=== PATIENT | male | born 1960 | race Caucasian/White ===

== ENCOUNTER 2017-12-08 22:22 | Emergency (ER) | payer BC ==
[2017-12-08 22:37] LABS: BILIRUBIN,URINE NEGATIVE (NEGATIVE); GLUCOSE, URINE (UA) NEGATIVE (NEGATIVE); KETONES,URINE (UA) NEGATIVE (NEGATIVE); LEUKOCYTE ESTERASE, URINE NEGATIVE (NEGATIVE); NITRITE,URINE NEGATIVE (NEGATIVE); OCCULT BLOOD,URINE LARGE (NEGATIVE); PROTEIN,URINE 30 mg/dL (NEGATIVE); UROBILINOGEN,URINE 0.2 (NORMAL) E.U./dL (NORMAL)
[2017-12-08 22:38] LABS: CLARITY,URINE CLEAR (CLEAR)
--- NOTE | 2017-12-08 22:40 | ED Physician Documentation ---
PD HPI MALE - Stated complaint Stated Complaint: MALE - Chief complaint Chief Complaint: Abd Pain - History obtained from History obtained from: Patient - History of Present Illness Timing - details: Abrupt onset Pain level max: 10 Pain level now: 8 Associated symptoms: Hematuria Similar symptoms before: Diagnosis (renal colic) Recently seen: Not recently seen - Additional information Additional information: hematuria started few days ago without discomfort, subsequently developed increasingly intense and frequent right flank pain. tonight, suddenly developed severe right flank pain Review of Systems Constitutional: reports: Reviewed and negative Cardiac: reports: Reviewed and negative Respiratory: reports: Reviewed and negative GI: reports: Abdominal Pain (right flank), Nausea. denies: Vomiting, Constipation, Diarrhea : reports: Hematuria. denies: Dysuria, Frequency PD PAST MEDICAL HISTORY - Past Medical History Past Medical History: Yes : Kidney stones - Past Surgical History Past Surgical History: No - Present Medications Home Medications: Ambulatory Orders Medication Instructions Recorded Confirmed Ondansetron Odt [Zofran] 4 mg TL Q6H PRN #10 tablet 12/09/17 Tamsulosin [Flomax] 0.4 mg PO DAILY #14 capsule 12/09/17 oxyCODONE/ACET 5/325 [Percocet 5 1 - 2 each PO Q6H PRN #20 tablet 12/09/17 mg/325 mg] - Allergies Allergies/Adverse Reactions: Allergies Allergy/AdvReac Type Severity Reaction Status Date / Time No Known Drug Allergies Allergy Verified 12/08/17 22:33 PD ED PE NORMAL - Vitals Vital signs reviewed: Yes - General General: Alert and oriented X 3, Well developed/nourished, Other (waxing and waning painful distress) - HEENT HEENT: Moist mucous membranes - Cardiac Cardiac: RRR, No murmur - Respiratory Respiratory: No respiratory distress, Clear bilaterally - Abdomen Abdomen: Normal bowel sounds, Soft, Non tender, Non distended - Back Back: No CVA TTP - Derm Derm: No rash Results - Vitals Vitals: Vital Signs - 24 hr 12/09/17 12/09/17 12/09/17 00:07 00:19 00:47 Heart Rate 75 70 65 Respiratory 18 18 18 Rate Blood Pressure 115/75 140/97 H O2 Saturation 97 12/09/17 12/09/17 12/09/17 01:57 02:19 02:38 Heart Rate 80 82 Respiratory 18 17 17 Rate Blood Pressure 138/88 H 138/99 H O2 Saturation 98 96 Oxygen O2 Source Room air - Labs Labs: Laboratory Tests 12/08/17 22:30 Urine Color YELLOW Urine Clarity CLEAR Urine pH 5.0 Ur Specific [place] >=1.030 H Urine Protein 30 H Urine Glucose (UA) NEGATIVE Urine Ketones NEGATIVE Urine Occult Blood LARGE H Urine Nitrite NEGATIVE Urine Bilirubin NEGATIVE Urine Urobilinogen 0.2 (NORMAL) Ur Leukocyte Esterase NEGATIVE Urine RBC TNTC H Urine WBC 4-5 Ur Squamous Epith Cells RARE Squamous Urine Crystals 6-10 Calcium Oxalate Urine Bacteria Rare Ur Microscopic Review INDICATED Urine Culture Comments NOT INDICATED - Rads (name of study) CT A/P Radiology: Prelim report reviewed, See rad report PD MEDICAL DECISION MAKING - ED course Complexity details: reviewed results, re-evaluated patient, considered differential, d/w patient ED course: D/W Dr. Rodríguez (urology at [facility]), no recommendations at this time. Departure - Departure Disposition: Home, Self Care Clinical Impression: Renal colic Condition: Good Instructions: ED Stone Renal W Colic Follow-Up: Baljinder Carmen MD [Primary Care Provider] - Prescriptions: Ondansetron Odt [Zofran] 4 mg TL Q6H PRN #10 tablet PRN Reason: Nausea / Vomiting oxyCODONE/ACET 5/325 [Percocet 5 mg/325 mg] 1 - 2 each PO Q6H PRN #20 tablet PRN Reason: Pain Tamsulosin [Flomax] 0.4 mg PO DAILY #14 capsule Comments: You need to follow up with a urologist. You can contact your insurance provider or your primary care physician's office for a referral. Based on the size of your kidney stone, it is highly likely that you will need a procedure to have the stone removed. Discharge Date/Time: 12/09/17 02:25
[2017-12-08 22:44] LABS: BACTERIA,URINE Rare /HPF (None Seen); RBC,URINE TNTC /HPF (0-5); SQUAMOUS EPITHELIAL CELL,UR RARE Squamous (<= Few)
[2017-12-08 22:45] LABS: CRYSTALS,URINE 6-10 Calcium Oxalate /LPF
[2017-12-08] MEDS ORDERED: ONDANSETRON 4 MG/2 ML VIAL IVP STA (22:52)
[2017-12-08] MEDS ORDERED: KETOROLAC 60 MG/2 ML VIAL IVP STA (22:52)
[2017-12-08] MEDS ORDERED: fentaNYL 100 MCG/2 ML VIAL IVP STA ×2 (22:52→23:58)
--- NOTE | 2017-12-09 00:05 | CT Preliminary Report ---
Exam: CT ABDOMEN/PELVIS W/O IMPRESSION: 1. Moderate right-sided hydronephrosis due to a right UPJ/proximal ureteral stone measuring 11.8 x 10 .4 x 10.3 mm, 1346 Hounsfield units in density. 2. Incipient right mid kidney stone. No intrarenal left sided stone noted. No left hydronephrosis wit h 3. Appendix is normal. There is no bowel obstruction. 4. Prior granulomatous disease with numerous calcified splenic and hepatic granulomata. Calcified rig ht hilar lymph node as well as right middle lobe granulomata. [facility] SITE ID: [id number]
[2017-12-09] MEDS ORDERED: ONDANSETRON 4 MG/2 ML VIAL IVP STA (00:09)
--- NOTE | 2017-12-09 00:11 | CT Report ---
EXAM: CT ABDOMEN AND PELVIS WITHOUT CONTRAST EXAM DATE: 12/08/2017 11:41 PM. CLINICAL HISTORY: Right-sided flank pain, increased urination for 2 days. COMPARISONS: None. TECHNIQUE: Routine helical CT imaging was performed through the abdomen and pelvis. IV contrast: None . Enteric contrast: No. Reconstructions: Coronal and sagittal. In accordance with CT protocol optimization, one or more of the following dose reduction techniques w ere utilized for this exam: automated exposure control, adjustment of mA and/or KV based on patient s ize, or use of iterative reconstructive technique. FINDINGS: Right Kidney/Ureter: Moderate right-sided hydronephrosis due to an obstructing right UPJ/proximal ure teral stone measuring 11.8 x 10.4 x 10.3 mm (image 78 series 3). This stone measures 1346 Hounsfield units in density. Incipient right mid kidney stone is noted anteriorly (image 62 series 3). There is no definite suspicious renal mass within the confines of a noncontrast exam. Left Kidney/Ureter: No stones. No hydronephrosis or hydroureter. No definite renal mass within the co nfines of a non-contrast exam. Abdominal Solid Organs: Numerous calcified splenic granulomata and a few calcified hepatic granulomat a. Otherwise abdominal parenchymal organs are without significant abnormality within the confines of a noncontrast exam. Bowel: No evidence of bowel obstruction. Appendix: Normal. Lymph Nodes: No definite pathologic lymphadenopathy. Fluid: No significant ascites. Vasculature: Normal caliber aorta. There is mild aortic and branch vessel atherosclerosis. Pelvis: No bladder stones. Decompressed bladder, precluding assessment. There is a small fat-containi ng left inguinal hernia noted. Bones: No definite suspicious bony lesions demonstrated. Moderate lower lumbar degenerative change. Lower Chest: No significant lung base consolidation or effusion. Calcified right middle lobe granulom yenny. IMPRESSION: 1. Moderate right-sided hydronephrosis due to a right UPJ/proximal ureteral stone measuring 11.8 x 10 .4 x 10.3 mm, 1346 Hounsfield units in density. 2. Incipient right mid kidney stone. No intrarenal left-sided stone noted. No left hydronephrosis. 3. Appendix is normal. There is no bowel obstruction. 4. Prior granulomatous disease with numerous calcified splenic and hepatic granulomata. Calcified rig ht hilar lymph node as well as right middle lobe granulomata. [facility] Referring Provider Line: [phone] SITE ID: [id number]
[2017-12-09] MEDS ORDERED: TAMSULOSIN 0.4 MG CAPSULE PO STA (01:45)
[2017-12-09] MEDS ORDERED: oxyCOD/ACETAMIN 5 MG/325 MG TABLET PO STA (01:45)
[2017-12-09] MEDS ORDERED: HYDROmorphone 2 MG/ML VIAL IVP STA (01:45)
[2017-12-09] MEDS ORDERED: oxyCODONE/ACET 5/325 Prepack 4 PO STA (02:18)
[2017-12-09 02:20] VITALS: BP 138/99
== END 2017-12-09 02:25 | disposition home or self-care (01) ==
LOC: ED 22:22
DX: N13.2 Hydronephrosis with renal and ureteral calculous obstruction (principal)
CPT/HCPCS: 74176; 81001; 96374; 96375; 96376; 99284; A9270; J1170; 81003; 87086

== ENCOUNTER 2020-01-15 09:59 | Emergency (ER) | payer BC ==
[2020-01-15 10:11] VITALS: BP 133/84
--- NOTE | 2020-01-15 10:42 | ED Physician Documentation ---
PD HPI UPPER EXT INJURY - Stated complaint Stated Complaint: LT HAND LAC - Chief complaint Chief Complaint: Laceration - History obtained from History obtained from: Patient - History of Present Illness Location: Left, Finger Type of injury: Laceration (Using a hedge tremor in his left finger tip got caught with the hedge tremors he reached for something. Small laceration that still bleeds despite direct pressure) Where injury occurred: Home Timing - onset: Today Timing - details: Abrupt onset, Still present Associated symptoms: No: Weakness, Numbness Contributing factors: No: Anticoagulated Similar symptoms before: Has not had sx before Review of Systems Constitutional: denies: Fever, Chills Nose: denies: Rhinorrhea / runny nose, Congestion Throat: denies: Sore throat Respiratory: denies: Cough Neurologic: denies: Focal weakness, Numbness PD PAST MEDICAL HISTORY - Past Medical History Past Medical History: Yes Neuro: None Endocrine/Autoimmune: None : Kidney stones HEENT: None Derm: None - Past Surgical History Past Surgical History: No - Present Medications Home Medications: Ambulatory Orders Medication Instructions Recorded Confirmed Ondansetron Odt [Zofran] 4 mg TL Q6H PRN #10 tablet 12/09/17 Tamsulosin [Flomax] 0.4 mg PO DAILY #14 capsule 12/09/17 oxyCODONE/ACET 5/325 [Percocet 5 1 - 2 each PO Q6H PRN #20 tablet 12/09/17 mg/325 mg] - Allergies Allergies/Adverse Reactions: Allergies Allergy/AdvReac Type Severity Reaction Status Date / Time No Known Drug Allergies Allergy Verified 01/15/20 10:03 - Social History Does the pt smoke?: No Smoking Status: Never smoker Does the pt drink ETOH?: No Does the pt have substance abuse?: No - Immunizations Immunizations are current?: Yes - POLST Patient has POLST: No PD ED PE NORMAL - Vitals Vital signs reviewed: Yes - General General: Alert and oriented X 3, No acute distress, Well developed/nourished - Derm Derm: Normal color, Warm and dry - Extremities Extremities: Other (Left index finger tip shows a 1 cm laceration still with some bleeding but no foreign body. It is just at the very tip of the nailbed and does cause a small cleft in the end of the nail. He has sensation in the area.) - Neuro Neuro: Alert and oriented X 3, No motor deficit, Normal speech Results - Vitals Vitals: Oxygen O2 Source Room air Procedures - Laceration (location) left index fingertip Length in cm: 1 Wound type: Linear, Into subcut fat, Clean Neurovascular status: Sensory intact, Motor intact Anesthesia: Lidocaine 1% Wound Preparation: Wound explored, To the base. No: FB identified Skin layer closure: Nylon, Running, Size #-0 - enter number (4), Sutures - enter # (4) PD MEDICAL DECISION MAKING - ED course Complexity details: considered differential, d/w patient Departure - Departure Disposition: 01 Home, Self Care Clinical Impression: Finger laceration Qualifiers: Encounter type: initial encounter Finger: ring finger Damage to nail status: with damage Foreign body presence: without foreign body Laterality: left Qualified Code(s): S61.315A - Laceration without foreign body of left ring finger with damage to nail, initial encounter Condition: Stable Record reviewed to determine appropriate education?: Yes Instructions: ED Laceration Hand Follow-Up: Baljinder Carmen MD [Primary Care Provider] - Comments: It is okay to wash and shower. Clean off the wound twice a day with soap and water, or peroxide and water. Apply some antibiotic ointment to it to keep it moist. Also to watch for signs of infection such as purulence, redness or increasing pain. Return to your primary care or the ER at the specified time for suture removal. Suture removal 7 to 10 days Discharge Date/Time: 01/15/20 12:35
[2020-01-15] MEDS ORDERED: IBUPROFEN 600 MG TABLET PO STA (10:47)
[2020-01-15] MEDS ORDERED: LIDOCAINE 1% 2 ML VIAL SUBQ STA (10:47)
[2020-01-15] MEDS ORDERED: TETANUS/DIPHTHERIA/PERTUSSIS 0.5 ML SYRINGE IM ONE (10:47)
== END 2020-01-15 12:35 | disposition home or self-care (01) ==
LOC: ED 09:59
DX: S61.315A Laceration without foreign body of left ring finger with damage to nail, initial encounter (principal); W29.3XXA Contact with powered garden and outdoor hand tools and machinery, initial encounter; Y93.H2 Activity, gardening and landscaping; Y92.009 Unspecified place in unspecified non-institutional (private) residence as the place of occurrence of the external cause
CPT/HCPCS: 12001; 90471; 90715; 99283; A9270

== ENCOUNTER 2020-06-07 07:40 | Outpatient (CLI) | payer BC ==
--- NOTE | 2020-06-07 08:33 | CT Report ---
PROCEDURE: Abdomen/Pelvis WO INDICATIONS: Right-sided flank pain. TECHNIQUE: Noncontrast 5 mm thick sections acquired from the diaphragms to the symphysis. 5 mm coronal and sagi ttal reformats were then performed. For radiation dose reduction, the following was used: automated exposure control, adjustment of mA and/or kV according to patient size. COMPARISON: Prior 12/08/2017 CT abdomen/pelvis FINDINGS: Image quality: Excellent. ABDOMEN: Lung bases: Lung bases are clear. Heart size is normal. Solid organs: Liver and spleen are normal in size. There are scattered granulomas and hepatic calci fications. Gallbladder appears normal Pancreas is normal in contours. No adrenal nodules. Kidneys are normal in size, without left-sided hydronephrosis but there is moderate right-sided hydronephrosi s associated with an impacted proximal ureteral stone on the right, measuring up to 5 x 7 mm and havi ng an internal radiodensity of up to 690 Hounsfield units. There is a punctate 1 mm calculus within t he collecting system of each kidney, nonobstructive. Peritoneum and bowel: Unenhanced bowel loops de monstrate normal wall thickness and caliber. No free fluid or air. Nodes and vessels: No retroperitoneal or mesenteric adenopathy by size criteria. Aorta and inferior vena cava are normal in caliber. Miscellaneous: No ventral hernias. PELVIS: Genitourinary: Bladder wall thickness is normal. Miscellaneous: No inguinal hernias or adenopathy. Bones: No suspicious bony lesions. No vertebral body compression fractures. IMPRESSION: Obstructive right-sided 5 x 7 mm proximal ureteral calculus although size that likely will not pass w ithout urologic intervention. This produces moderate hydronephrosis at this time. 2 additional puncta te (1 mm or less) calculi are seen within the kidneys bilaterally. These are nonobstructive. Note is also made of small granulomatous calcifications involving the spleen to a greater degree than the liver, chronic in appearance. Urology consultation is recommended. Reviewed by: Kevin Burr MD on 06/07/2020 8:31 AM [facility] Approved by: Kevin Burr MD on 06/07/2020 8:31 AM PST Station ID: [id number]
== END 2020-06-07 07:41 | disposition home or self-care (01) ==
LOC: DI 07:40
PROVIDERS: ATTEND Urology
DX: N13.2 Hydronephrosis with renal and ureteral calculous obstruction (principal); N20.0 Calculus of kidney
CPT/HCPCS: 74176

== ENCOUNTER 2021-04-09 13:58 | Outpatient (CLI) | payer BC | END 2021-04-09 13:59 | disposition home or self-care (01) | LOC: COV 13:58 | PROVIDERS: ATTEND Family Medicine | DX: M79.10 Myalgia, unspecified site (principal); R53.83 Other fatigue; R11.2 Nausea with vomiting, unspecified; Z20.822 Contact with and (suspected) exposure to COVID-19 ==

== ENCOUNTER 2021-04-11 13:54 | Outpatient (CLI) | payer BC | END 2021-04-11 13:55 | disposition home or self-care (01) | LOC: COV 13:54 | PROVIDERS: ATTEND Family Medicine | DX: R53.83 Other fatigue (principal); R11.0 Nausea; Z20.822 Contact with and (suspected) exposure to COVID-19 ==

== ENCOUNTER 2021-08-11 12:31 | Emergency (ER) | payer BC ==
--- NOTE | 2021-08-11 12:56 | ED Physician Documentation ---
PD HPI UPPER EXT INJURY - Stated complaint Stated Complaint: R WRIST INJ - Chief complaint Chief Complaint: Trauma Ext - History obtained from History obtained from: Patient - Additonal information Additional information: Right-handed gentleman was using a power drill and it over torqued and he hurt his hand. This happened about an hour and a half ago. Declines pain medications. No other injuries. Review of Systems Constitutional: reports: Reviewed and negative Eyes: reports: Reviewed and negative Ears: reports: Reviewed and negative Nose: reports: Reviewed and negative Throat: reports: Reviewed and negative Cardiac: reports: Reviewed and negative PD PAST MEDICAL HISTORY - Past Medical History Past Medical History: Yes Neuro: None Endocrine/Autoimmune: None : Kidney stones HEENT: None Derm: None - Past Surgical History Past Surgical History: Yes - Present Medications Home Medications: Ambulatory Orders Medication Instructions Recorded Confirmed Ondansetron Odt [Zofran] 4 mg TL Q6H PRN #10 tablet 12/09/17 Tamsulosin [Flomax] 0.4 mg PO DAILY #14 capsule 12/09/17 oxyCODONE/ACET 5/325 [Percocet 5 1 - 2 each PO Q6H PRN #20 tablet 12/09/17 mg/325 mg] - Allergies Allergies/Adverse Reactions: Allergies Allergy/AdvReac Type Severity Reaction Status Date / Time No Known Drug Allergies Allergy Verified 08/11/21 12:48 - Social History Does the pt smoke?: No Smoking Status: Never smoker Does the pt drink ETOH?: No Does the pt have substance abuse?: No - Immunizations Immunizations are current?: Yes - POLST Patient has POLST: No PD ED PE NORMAL - Vitals Vital signs reviewed: Yes - General General: Alert and oriented X 3, No acute distress - Neck Neck: Supple, no meningeal sign, No bony TTP - Extremities Extremities: Other (Focally tender over the fourth metacarpal of the right hand without deformity. No wrist pain. He is able to make a fist but with quite some pain. No obvious loss of saccade.) - Neuro Neuro: Alert and oriented X 3, Normal speech - Psych Psych: Normal mood, Normal affect Results - Vitals Vitals: Vital Signs - 24 hr 08/11/21 12:44 Temperature 35.9 C L Heart Rate 72 Respiratory 16 Rate Blood Pressure 120/90 H O2 Saturation 98 Oxygen O2 Source Room air - Rads (name of study) Right hand 3 view x-ray demonstrates oblique fracture midshaft fourth metacarpal Radiology: EMP read contemporaneously Procedures - Splint (location) RUE Splint applied by: Physician Type of splint: Short arm, Ulnar gutter Other: Patient tolerated well, No complications, Neurovascular intact Departure - Departure Disposition: 01 Home, Self Care Clinical Impression: Fracture of fourth metacarpal bone Qualifiers: Encounter type: initial encounter Fracture type: closed Metacarpal location: shaft Fracture alignment: displaced Laterality: right Qualified Code(s): S62.324A - Displaced fracture of shaft of fourth metacarpal bone, right hand, initial encounter for closed fracture Condition: Good Record reviewed to determine appropriate education?: Yes Instructions: ED Fx Hand Closed, ED Splint Care Fiberglass Comments: Follow-up with [facility] as you are planning, call Friday for an appointment. Keep the splint on and dry until you follow-up. Tylenol and/or ibuprofen as needed for pain. Return for new or worsening symptoms.
--- NOTE | 2021-08-11 13:33 | XRAY Report ---
PROCEDURE: Hand 3 View RT, x-ray INDICATIONS: hand inj, 4th MC TTP TECHNIQUE: 3 views of the hand(s) acquired. COMPARISON: None FINDINGS: Bones: Oblique fracture through the mid fourth metacarpal noted with minimal displacement. Normal bon e mineralization present. No radiopaque foreign body. Soft tissues: No suspicious soft tissue calcifications. IMPRESSION: Oblique fourth metacarpal fracture Reviewed by: Tray Rogers MD on 08/11/2021 12:25 PM [facility] Approved by: Tray Rogers MD on 08/11/2021 12:25 PM [facility] Station ID: [id number]
[2021-08-11 13:45] VITALS: BP 122/90
== END 2021-08-11 13:47 | disposition home or self-care (01) ==
LOC: ED 12:31
DX: S62.324A Displaced fracture of shaft of fourth metacarpal bone, right hand, initial encounter for closed fracture (principal); X50.1XXA Overexertion from prolonged static or awkward postures, initial encounter; Y93.89 Activity, other specified
CPT/HCPCS: 29125; 99283